=== PATIENT | male | born 1990 | race Two or more races ===

== ENCOUNTER 2022-03-24 14:28 | Emergency (ER) | payer OTHER ==
[~2022-03-24] VITALS: Ht 177.8 cm; Wt 165.6 kg
[2022-03-24] MEDS ORDERED: [UNRECOGNIZED DRUG - OTHER] SQ (14:36)
== END 2022-03-24 18:29 | disposition home or self-care (01) ==
LOC: ER 14:28
DX: S99.911A Unspecified injury of right ankle, initial encounter (principal); X58.XXXA Exposure to other specified factors, initial encounter; Y93.9 Activity, unspecified; Y92.9 Unspecified place or not applicable; Y99.9 Unspecified external cause status